=== PATIENT | male | born 1940 | race Caucasian/White ===

== ENCOUNTER 2020-09-01 14:38 | Inpatient (IN) | payer BC, OTHER ==
[2020-09-01 16:14] LABS: BASO % 0.9 % (0-2.0); EOS % 3.9 % (0-4.5); HEMATOCRIT 31.8 % (35.4-49); HEMOGLOBIN 10.6 GM/dL (11.7-16.9); MCH 31.2 pg (25.7-33.7); MCHC 33.3 g/dl (32.0-35.9); MEAN CELL VOLUME 93.7 fl (80-96); MEAN PLT VOLUME 8.7 fl (7.5-11.1); MONO % 8.1 % (3.8-10.2); NEUT % 64.1 % (42.8-82.8); PLATELET COUNT 358 K/MM3 (134-434); RBC 3.39 M/mm3 (4.00-5.60); RDW 15.6 % (11.9-15.9); WHITE BLOOD COUNT 6.5 K/mm3 (4.0-10.0)
[2020-09-01 16:25] LABS: INR 1.03 (0.83-1.09); PROTHROMBIN TIME (PATIENT) 12.5 SEC (9.7-13.0)
[2020-09-01 16:27] LABS: ACTIVATED PTT 28.8 SECONDS (25.2-36.5)
[2020-09-01 16:34] LABS: BLOOD UREA NITROGEN 9.8 mg/dL (7-18); CALCIUM 8.8 mg/dL (8.5-10.1)
[2020-09-01 16:37] LABS: CREATININE 0.9 mg/dL (0.55-1.3)
[2020-09-01 16:40] LABS: BILIRUBIN,TOTAL 0.4 mg/dL (0.2-1)
[2020-09-01 18:07] LABS: URINE APPEARANCE BLOODY; URINE COLOR RED
[2020-09-01 18:11] LABS: URINE RBC 34394 /uL (0-23.9); URINE WBC 1759 /uL (0-25.8)
[2020-09-01 18:12] LABS: EPI CELLS 1.7 /uL (0-25.1); HYALINE CASTS 194 /uL (0-3.1); URINE BACTERIA 7.1 /uL (0-1359)
[2020-09-01 18:59] LABS: MAGNESIUM 2.1 mg/dL (1.8-2.4)
[2020-09-01] MEDS ORDERED: KCL 10 MEQ IVPB 10 MEQ/100 ML INFUS.BAG IVPB ONE (23:11)
[2020-09-01] MEDS: KCL 10 MEQ IVPB 10 MEQ/100 ML INFUS.BAG IVPB SCH (23:27)
[2020-09-01] MEDS: DEXTROSE 5%-0.45% SALINE 1,000 ML IV SCH (23:28)
[2020-09-02] MEDS ORDERED: KCL 10 MEQ IVPB 10 MEQ/100 ML INFUS.BAG IVPB ONE ×2 (00:15→01:16)
[2020-09-02] MEDS: KCL 10 MEQ IVPB 10 MEQ/100 ML INFUS.BAG IVPB SCH ×2 (00:19→01:37)
[2020-09-02 03:57] VITALS: BMI 33.4
[2020-09-02] MEDS ORDERED: MEROPENEM 1 GM in DEXTROSE 5%-WATER 100 ML IVPB ONE ×2 (07:15→10:30)
[2020-09-02] MEDS ORDERED: PT OWN MED DRAWER 7, Y5N ONE ×3 (10:03→17:16)
[2020-09-02] MEDS: amLODIPine BESYLATE 5 MG TABLET (FP) PO SCH (10:19)
[2020-09-02] MEDS: GABAPENTIN 100 MG CAPSULE PO SCH ×3 (10:19→22:31)
[2020-09-02] MEDS: FINASTERIDE 5 MG TABLET (FP) PO SCH (10:19)
[2020-09-02] MEDS: MIDODRINE HCL 5 MG TABLET PO SCH ×3 (10:20→17:25)
[2020-09-02] MEDS: DULoxetine HCL 30 MG CAPSULE.DR PO SCH (10:20)
[2020-09-02] MEDS ORDERED: DEXTROSE 5%-WATER 100 ML IVPB ONE (10:39)
[2020-09-02] MEDS ORDERED: MEROPENEM 1 GM VIAL (RESTRICTED TO ID) IVPB ONE (10:39)
[2020-09-02 11:53] LABS: BASO % 2.7 % (0-2.0); HEMOGLOBIN 9.1 GM/dL (11.7-16.9); LYMPH % 27.8 % (8-40); MCH 30.6 pg (25.7-33.7); MCHC 32.7 g/dl (32.0-35.9); MEAN CELL VOLUME 93.7 fl (80-96); MEAN PLT VOLUME 8.6 fl (7.5-11.1); MONO % 8.6 % (3.8-10.2); NEUT % 55.9 % (42.8-82.8); PLATELET COUNT 305 K/MM3 (134-434); RBC 2.98 M/mm3 (4.00-5.60); RDW 15.3 % (11.9-15.9); WHITE BLOOD COUNT 5.4 K/mm3 (4.0-10.0)
[2020-09-02 12:14] LABS: ALBUMIN 2.5 g/dl (3.4-5.0); CALCIUM 7.9 mg/dL (8.5-10.1)
[2020-09-02 12:15] LABS: BLOOD UREA NITROGEN 6.9 mg/dL (7-18)
[2020-09-02 12:18] LABS: CREATININE 0.7 mg/dL (0.55-1.3)
[2020-09-02 12:19] LABS: BILIRUBIN,TOTAL 0.4 mg/dL (0.2-1); TOT PROT 5.5 g/dl (6.4-8.2)
[2020-09-02] MEDS ORDERED: POTASSIUM CHLORIDE ORAL LIQUID 20 MEQ/15 ML PO ONE (12:34)
[2020-09-02] MEDS: DEXTROSE 5%-0.45% SALINE 1,000 ML IV SCH (14:57)
[2020-09-02] MEDS ORDERED: PIPERACILLIN/TAZOBACTAM 3.375 GM VIAL IVPB ONE (17:17)
[2020-09-02] MEDS ORDERED: DEXTROSE 5%-WATER - 50 ML IVPB ONE (17:17)
[2020-09-02] MEDS: PIPERACILLIN/TAZOB 3.375 GM 3.375 GM in DEXTROSE 5%-WATER - 50 ML IVPB SCH (17:23)
[2020-09-02] MEDS: POLYETHYLENE GLYCOL 3350 119 GM BTL PO SCH (17:26)
[2020-09-02] MEDS: ATORVASTATIN CA 20 MG TABLET (FP) PO SCH (22:31)
[2020-09-03] MEDS ORDERED: DEXTROSE 5%-WATER - 50 ML IVPB ONE ×3 (03:17→17:12)
[2020-09-03] MEDS ORDERED: PIPERACILLIN/TAZOBACTAM 3.375 GM VIAL IVPB ONE ×3 (03:17→17:12)
[2020-09-03] MEDS: PIPERACILLIN/TAZOB 3.375 GM 3.375 GM in DEXTROSE 5%-WATER - 50 ML IVPB SCH ×3 (03:20→17:23)
[2020-09-03] MEDS: GABAPENTIN 100 MG CAPSULE PO SCH ×3 (06:40→21:38)
[2020-09-03] MEDS: DEXTROSE 5%-0.45% SALINE 1,000 ML IV SCH (06:42)
[2020-09-03 09:52] LABS: HEMATOCRIT 28.7 % (35.4-49); HEMOGLOBIN 9.5 GM/dL (11.7-16.9); MCH 31.3 pg (25.7-33.7); MCHC 33.2 g/dl (32.0-35.9); MEAN CELL VOLUME 94.2 fl (80-96); MEAN PLT VOLUME 8.6 fl (7.5-11.1); PLATELET COUNT 301 K/MM3 (134-434); RBC 3.04 M/mm3 (4.00-5.60); RDW 15.8 % (11.9-15.9); WHITE BLOOD COUNT 5.9 K/mm3 (4.0-10.0)
[2020-09-03 10:09] LABS: CALCIUM 7.8 mg/dL (8.5-10.1)
[2020-09-03 10:10] LABS: ALBUMIN 2.4 g/dl (3.4-5.0); BLOOD UREA NITROGEN 7.7 mg/dL (7-18)
[2020-09-03] MEDS: FINASTERIDE 5 MG TABLET (FP) PO SCH (10:11)
[2020-09-03] MEDS: DULoxetine HCL 30 MG CAPSULE.DR PO SCH (10:11)
[2020-09-03] MEDS: MIDODRINE HCL 5 MG TABLET PO SCH ×3 (10:11→17:25)
[2020-09-03] MEDS: amLODIPine BESYLATE 5 MG TABLET (FP) PO SCH (10:12)
[2020-09-03 10:13] LABS: CREATININE 0.9 mg/dL (0.55-1.3)
[2020-09-03] MEDS: POLYETHYLENE GLYCOL 3350 119 GM BTL PO SCH (10:14)
[2020-09-03 10:15] LABS: TOT PROT 5.4 g/dl (6.4-8.2)
[2020-09-03 10:20] LABS: BILIRUBIN,TOTAL 0.6 mg/dL (0.2-1)
[2020-09-03] MEDS ORDERED: PT OWN MED DRAWER 7, Y5N ONE ×2 (13:48→17:12)
[2020-09-03] MEDS: INSULIN SLIDING SCALE (NOVOLOG) 1 VIAL SQ SCH ×2 (17:10→21:38)
[2020-09-03] MEDS: ATORVASTATIN CA 20 MG TABLET (FP) PO SCH (21:38)
[2020-09-04] MEDS: DEXTROSE 5%-0.45% SALINE 1,000 ML IV SCH ×2 (00:06→14:45)
[2020-09-04] MEDS ORDERED: PIPERACILLIN/TAZOBACTAM 3.375 GM VIAL IVPB ONE ×2 (02:51→10:15)
[2020-09-04] MEDS ORDERED: DEXTROSE 5%-WATER - 50 ML IVPB ONE ×2 (02:52→10:15)
[2020-09-04] MEDS: PIPERACILLIN/TAZOB 3.375 GM 3.375 GM in DEXTROSE 5%-WATER - 50 ML IVPB SCH ×2 (02:53→10:19)
[2020-09-04] MEDS: GABAPENTIN 100 MG CAPSULE PO SCH ×2 (07:26→14:43)
[2020-09-04] MEDS: INSULIN SLIDING SCALE (NOVOLOG) 1 VIAL SQ SCH ×3 (07:26→17:24)
[2020-09-04 09:47] LABS: HEMATOCRIT 28.4 % (35.4-49); HEMOGLOBIN 9.6 GM/dL (11.7-16.9); MCH 31.5 pg (25.7-33.7); MCHC 33.7 g/dl (32.0-35.9); MEAN CELL VOLUME 93.4 fl (80-96); MEAN PLT VOLUME 8.5 fl (7.5-11.1); PLATELET COUNT 287 K/MM3 (134-434); RBC 3.04 M/mm3 (4.00-5.60); RDW 15.8 % (11.9-15.9); WHITE BLOOD COUNT 5.8 K/mm3 (4.0-10.0)
[2020-09-04] MEDS ORDERED: PT OWN MED DRAWER 7, Y5N ONE (10:14)
[2020-09-04] MEDS: amLODIPine BESYLATE 5 MG TABLET (FP) PO SCH (10:18)
[2020-09-04] MEDS: FINASTERIDE 5 MG TABLET (FP) PO SCH (10:18)
[2020-09-04] MEDS: DULoxetine HCL 30 MG CAPSULE.DR PO SCH (10:18)
[2020-09-04] MEDS: POLYETHYLENE GLYCOL 3350 119 GM BTL PO SCH (10:19)
[2020-09-04] MEDS: MIDODRINE HCL 5 MG TABLET PO SCH ×3 (10:19→17:55)
[2020-09-04 10:31] LABS: CALCIUM 7.8 mg/dL (8.5-10.1)
[2020-09-04 10:32] LABS: ALBUMIN 2.4 g/dl (3.4-5.0); BLOOD UREA NITROGEN 6.1 mg/dL (7-18)
[2020-09-04 10:35] LABS: CREATININE 0.9 mg/dL (0.55-1.3)
[2020-09-04 10:36] LABS: BILIRUBIN,TOTAL 0.4 mg/dL (0.2-1); TOT PROT 5.5 g/dl (6.4-8.2)
[2020-09-04 14:23] VITALS: BP 137/61; PULSE 72; TEMP 97.5
== END 2020-09-04 19:35 | DRG 726 ==
LOC: JER 14:38 → JERBED 19:35 → OBSVTOIN 21:43 → J6S 09-02 02:41
PROVIDERS: ADMIT Internal Medicine; ATTEND Family Medicine
DX: N40.0 Benign prostatic hyperplasia without lower urinary tract symptoms (principal); I10 Essential (primary) hypertension; E78.5 Hyperlipidemia, unspecified; J44.9 Chronic obstructive pulmonary disease, unspecified; E11.9 Type 2 diabetes mellitus without complications; E87.6 Hypokalemia; D64.9 Anemia, unspecified; K76.0 Fatty (change of) liver, not elsewhere classified; E11.42 Type 2 diabetes mellitus with diabetic polyneuropathy; K59.09 Other constipation; E78.00 Pure hypercholesterolemia, unspecified; E66.9 Obesity, unspecified; Z68.33 Body mass index [BMI] 33.0-33.9, adult; R31.0 Gross hematuria; F32.9 Major depressive disorder, single episode, unspecified; Z87.19 Personal history of other diseases of the digestive system
CPT/HCPCS: 36415; 71045-TC-FY; 74177-TC; 80053; 81003; 82962; 83036; 83735; 85025; 85027; 85610; 85730; 86850; 86900; 86901; 87040; 87086; 93005; 93010; 97116-GP; 97161-GP; 99285-25; C9803; G0378; Q9967; U0003; U0005